=== PATIENT | female | born 1950 | race Caucasian/White ===

== ENCOUNTER 2020-11-25 11:33 | Emergency (ER) | payer OTHER, BC ==
--- OUTSIDE RECORDS SUMMARY | 2020-11-25 11:35 | XMS REPORT | Continuity of Care Document ---
:1950 Author Organization [facility] t Address [address] [place] [address] Care Team Providers Name Role Phone Asked, Given Primary Care Physician Unavailable Payers Payer Name Policy Type Policy Number Effective Date Expiration Date S ource Problems This patient has no known problems. Allergies, Adverse Reactions, Alerts Allergy Allergy Status Severity Reaction(s) Onset Inactive Treating Comm ents Source Name Type Date Date Clinician No Known DA Active [facility] 09[facility]29 [place] [facility] No Known DA Active U [facility] Drug 02-09 [place] [facility]: [facility] Family History Family Member Diagnosis Comments Start Date Stop Date Source Natural father Cancer [facility] Natural father Colon cancer [facility] Natural father Lung cancer [facility] Social [facility] Social Habit Start Date Stop Date Quantity Comments Source Alcohol intake 2016-01-22 2016-01-22 Current [facility]odist 00:00:00 00:00:00 non-drinker of alcohol (finding) Sex Ass[birth year] [facility] ethodist 00:00:00 00:00:00 Smoking Status Start Date Stop Date Source Never smoker [facility] Medications Ordered Filled Start Stop Current Ordering Indication Dosage Frequency Signature Comments Components Source Medication Medication Date Date Medication? Clinician (SIG) Name Name lisinopril- Yes 1{tbl} QD Take 1 Ho usqamar hydrochloro 5-26 tablet by Met charlie thiazide 15:22: mouth st (PRINZIDE,Z 28 daily. ESTORETIC) 20-12.5 mg per tablet pravastatin Yes 20mg QD Take 20 mg [place] (PRAVACHOL) 5-26 by mouth Meth christianne 20 MG 15:22: nightly. st tablet 28 coenzyme Yes 100mg QD Take 100 [place] Q10 100 mg 5-26 mg by Methodi capsule 15:22: mouth st 28 nightly. DOCOSAHEXAN Yes 1250mg QD Take 1,250 [place] OIC 5-26 mg by [facility] ACID/EPA 15:22: mouth st (FISH OIL 28 daily. ORAL) Procedures This patient has no known procedures. Plan of Care Planned Activity Planned Date Details Comments Source Future Scheduled 2021-01-21 INFLUENZA VACCINE Fatou n [facility] Test 00:00:00 [code = INFLUENZA VACCINE] Future Scheduled 2015 65+ PNEUMOCOCCAL [facility] Test 00:00:00 VACCINE (1 of 1 - PPSV23) [code = 65+ PNEUMOCOCCAL VACCINE (1 of 1 - PPSV23)] Future Scheduled 2000-01-27 BREAST CANCER [facility] thodist Test 00:00:00 SCREENING [code = BREAST CANCER SCREENING] Future Scheduled 2000-01-27 COLONOSCOPY SCREENING latasha Rast[facility]ari Test 00:00:00 [code = COLONOSCOPY SCREENING] Future Scheduled 2000-01-27 SHINGLES VACCINES (#1) H birgit Rast[facility]ari Test 00:00:00 [code = SHINGLES VACCINES (#1)] Future Scheduled 1962 COVID-19 VACCINE (1) Evi toshia Rast[facility]ari Test 00:00:00 [code = COVID-19 VACCINE (1)] Results Test Description Test Time Test Comments Results Result [facility] elliott Comments - MRI C-SPINE W/O 2020-03-23 Patient Name: CONT 14:49:00 ARTHUR GA Unit No: [id number] EXAMS: CPT CODE: [id number] MRI C-SPINE W/O CONT 12580 TECHNIQUE: Multiplanar, multisequence MRI examination performed of the cervical spine without intravenous contrast material. COMPARISON: None available. FINDINGS: Alignment: Grade 1 retrolisthesis C4-C5. Bone Lesion / Fracture: None present. Cervical Spinal Cord: No cord expansion or abnormal signal. Prevertebral / Paraspinal Soft Tissues: Unremarkable. C2/3: No significant disc bulge or herniation. Facet hypertrophy is noted bilaterally with fusion on the left. No significant foraminal or central canal stenosis. C3/4: Left asymmetric disc bulge is present as well as severe left, mild right facet hypertrophy. There is severe left, moderate right foraminal stenosis as well as moderate central canal stenosis. C4/5: Broad disc bulge osteophyte complex is present as well as right greater than left uncovertebral hypertrophy and left-sided facet degeneration. There is moderate central canal stenosis as well as mild left, moderate right foraminal stenosis. C5/6: Large left asymmetric disc bulge osteophyte complexes visualized as well as severe bilateral uncovertebral hypertrophy. There is severe canal stenosis as well as moderate to severe left, moderate right foraminal stenosis. C6/7: Broad disc bulge. Mild facet hypertrophy is present. There is mild to moderate central canal stenosis as well as mild right foraminal stenosis. C7/T1: Small disc bulge. Right greater than left facet hypertrophy. There is mild right foraminal stenosis as well as mild central canal stenosis. No significant left foraminal narrowing. IMPRESSION: Advanced multilevel cervical spondylosis, greatest at C5-C6, where there is severe central canal stenosis. at 1579 Reported and signed by: Demarcus Ching M.D. CC: Redd Joyner MD Technologist: Juhi Yousif RT(R) Transcribed D/ (3371) AsadRoly [facility] NAME: ARTHUR GA [address] PHYS: Redd Muñoz : 1950 AGE: 70 SEX: F [place], [place] [address] LOC: Y.MRI PHONE #: [phone] EXAM DATE: 03/23/2020 STATUS: REG CLI FAX #: [phone] RAD #: D/C DT PAGE 1 Signed Report Patient Name: ARTHUR GA Unit No: [id number] EXAMS: CPT CODE: [id number] MRI C-SPINE W/O CONT 57428 <Continued> Orig Print D/T: S: 03/23/2020 (1453) [facility] NAME: ARTHUR GA [address] [facility] PHYS: AFSHAN VinsoneyRedd Chavez M : 1950 AGE: 70 SEX: F [place], [place] [address] LOC: Y.MRI PHONE #: [phone] EXAM DATE: 03/23/2020 STATUS: REG CLI FAX #: [phone] RAD #: D/C DT PAGE 2 Signed Report HGB HCT 2019-02-26 06:37:00 Test Item Value Reference Range Interpretation Comme nts HEMOGLOBIN (test code = HGB) 13.2 g/dL 12-16 N HEMATOCRIT (test code = HCT) 39.0 % 37-47 N - USG NDL PLACEMENT (Bxg/Asp)2019-02-18 12:29:00 Patient Name: ARTHUR GA Unit No: [id number] EXAMS: CPT CODE: [id number] USG NDL PLACEMENT (Bxg/Asp) 82330 INDICATION: Right knee pain. PROCEDURE: Ultrasound guided cryoanalgesia (Iovera) of the right anterior femoral cutaneous nerve and the superior and inferiorbranches of the infrapatellar branch of the saphenous nerve. LAMINATION ASSEMBLER: Dr. Ching. MEDICATIONS: 1 % Lidocaine local anesthesia CONTRAST: None. COMPLICATION: None immediately evident. DESCRIPTION: After the procedure, including indication and potential complications had been discussed with the patient and questions answered, written informed consent was obtained. The patient was then taken to the ultrasound suite and placed on the table in supine position with their treatment leg fully extended. The skin of the right knee was evaluated sonographically. The skin over the anterior femor al cutaneous nerve and the superior and inferior branches of the infrapatellar branch of the saphenous nerve was marked. The skin was then prepped and draped sterilely. A time out was performed. After achieving 1% Lidocaine local anesthesia, the Iovera cryoanalgesia needle was inserted into the top of the treatment area, and the treatment was initiated. The duration of one treatment cycle was 60 seconds. After each treatment cycle, the needle was removed and repositioned in an overlapping position over the adjacent previous treatment location. A new treatment cycle was started. The treatment cycle was repeated a total of 4 times along the treatment area to treat the two branches of the infrapatellar saphenous nerve. The treatment cycle was repeated a total of 4 times a long a second treatment area to treat the anterior femoral cutaneous nerve. The patent's skin was cleaned and the wound was covered with a band-aid. The patient was instructed to stand and mobilize the knee joint. No immediate complication were observed. The patient tolerated the procedure well and was subsequently discharged in stable condition with instructions for follow up. Preprocedural pain level: 3/ 10 Postprocedural pain level: 0/ 10 IMPRESSION: Cryoanalgesia of the right anterior femoral cutaneous nerve and the superior andinferior branches of the infrapatellar branch of the saphenous nerve as above. [facility] NAME: ARTHUR GA [address] [place] [address] PHYS: [email or web address] - Marcel Bush : 1950 AGE: 69 SEX: F [place], [place] [address] LOC: NADYA PHONE #: [phone] EXAM DATE: 02/18/2019 STATUS: REG CLI FAX #: [phone] RAD #: D/C DT PAGE 1 Signed Report (CONTINUED) Patient Name: ARTHUR GA Unit No: [id number] EXAMS: CPT CODE: [id number] USG NDL PLACEMENT (Bxg/Asp) 62174 <Continued> at 1229 Reported and signed by: Demarcus Ching M.D. CC:Marcel Bush MD Technologist: VIBHA CHAUDHARY RDMS, RVT Transcribed D/ (3895) t.[email or web address].[email or web address] [facility] NAME: ARTHUR GA [address] [facility] PHYS: Marcel Lepe : 1950 AGE: 69 SEX: F [place], [place] [address] LOC: TeodoroRAD PHONE #: [phone] EXAM DATE: 02/18/2019 STATUS: REG CLI FAX #: [phone] RAD #: D/C DT PAGE 2 Signed Report Patient Name: ARTHUR GA Unit No: [id number] EXAMS: CPT CODE: [id number] USG NDL PLACEMENT (Bxg/Asp) 05291 <Continued> Orig Print D/T: S: 02/18/2019 (1232) [facility] NAME: ARTHUR GA [address] [facility] PHYS: Marcel Lepe : 1950 AGE: 69 SEX: F [place], [place] [address]HIHW NO: [id number] LOC: TeodoroRAD PHONE #: [phone] EXAM DATE: 02/18/2019 STATUS: REG CLI FAX #: [phone] RAD #: D/C DT PAGE 3 Signed ReportCOMPREHENSIVE METABOLIC [id number] 18:40:00 Test Item Value Reference Range Interpretation Comments SODIUM (test code = 141 mmol/L 136-145 N NA) POTASSIUM (test code = 3.9 mmol/L 3.5-5.1 N K) CHLORIDE (test code = 102.0 mmol/L 98-107 N CL) CARBON DIOXIDE (test 30.8 mmol/L 21-32 N code = CO2) GLUCOSE (test code = 100 mg/dL 70-110 N GLU) BLOOD UREA NITROGEN 21 mg/dL 7-18 H (test code = BUN) GLOMERULAR FILTRATION 73.2 >60 Unit o f measure: RATE (test code = GFR) mL/mi n/1.73 [id number] Range:Healthy Adults >90 mL/min/1.73 m2 For Chronic Kidney Disease: St age II Mild Decrease in GFR 60-90 St age III Moderate Decrease in GFR 30-59 Stage IV Severe Decre ase in GFR 15- 29 Stage V Kidney Failure <15 CREATININE (test code 0.78 mg/dL 0.55-1.30 N = CREAT) TOTAL PROTEIN (test 6.9 g/dL 6.4-8.2 N code = PROT) ALBUMIN (test code = 4.0 g/dL 3.4-5.0 N ALB) GLOBULIN (test code = 2.9 g/dL 2.2-4.2 N GLOB) ALBUMIN/GLOBULIN RATIO 1.4 0.7-2.0 N (test code = A/G) CALCIUM (test code = 9.2 mg/dL 8.2-10.1 N CA) BILIRUBIN TOTAL (test 0.29 mg/dL 0.2-1.00 N code = BILT) SGOT/AST (test code = 22.0 U/L 15-37 N AST) SGPT/ALT (test code = 25.0 U/L 12-78 N Please note new ALT) normal range. ALKALINE PHOSPHATASE 75 U/L 46-116 N TOTAL (test code = ALKP) URINALYSIS [id number] 18:20:00 Test Item Value Reference Range Interpretation Comments UA COLOR (test code = COLU) YELLOW YELLOW UA APPEARANCE (test code = SL CLOUDY CLEAR A APPU) UA GLUCOSE DIPSTICK (test code NEGATIVE NEGATIVE = DGLUU) UA BILIRUBIN DIPSTICK (test NEGATIVE NEGATIVE code = BILU) UA KETONE DIPSTICK (test code NEGATIVE mg/dL NEG = KETU) UA SPECIFIC GRAVITY (test code >= 1.030 1.003-1.035 = SGU) UA BLOOD DIPSTICK (test code = NEGATIVE NEGATIVE TURNER) UA PH DIPSTICK (test code = 6.0 >6.5 MAHIN) UA PROTEIN DIPSTICK (test code NEGATIVE mg/dL NEG = PROU) UA UROBILINIOGEN DIPSTICK 0.2 mg/dL NORM (test code = URO) UA NITRITE DIPSTICK (test code NEGATIVE NEG = MARINA) UA LEUKOCYTE ESTERASE DIPSTICK 1+ NEGATIVE A (test code = LEUU) UA WBC (test code = WBCU) 5-10 /HPF 0-2 UA RBC (test code = RBCU) 0-2 /HPF 0-2 UA EPITHELIAL CELLS (test code MOD /HPF 0-2 = EPIU) UA BACTERIA (test code = BACU) 3+ /HPF NONE A PROTHROMBIN [id number] 17:40:00 Test Item Value Reference Range Interpretation Comments PROTHROMBIN TIME 10.9 secs 10.1-12.5 N PATIENT (test code = PTP) INTERNATIONAL NORMAL 0.96 <2.0 RECOMME NDED THERAPEUTIC RATIO (test code = RANGE FOR ORAL INR) ANTICOAGULANTTR EATMENT: CONDI TION INRProphylaxis of venous thrombos is in 2.0 - 3.0 high-risk medic al or surgical patientsTreatme nt of venous thrombos is 2.0 - 3.0Prevention o f embolism 2.0 - 3.0Prevention o f recurrent embol ism, or 3.0 - 4. 5 patients with mechanical pros thetic intravascular v henson IS PATIENT ON ANTICOAGULANTS ? YLIST ANTICOAGULANT/ANTI PLT MEDICATION : AspirinHas Lab been notified if Patient is on Heparin Drip? NOTHROMBOPLASTIN TIME [id number] 17:40:00 Test Item Value Reference Range Interpretation Comments PTT ACTIVATED (test code = APTT) 31.9 secs 24.9-37.0 N IS PATIENT ON ANTICOAGULANTS ? YLIST ANTICOAGULANT/ANTI PLT MEDICATION : AspirinHas Lab been notified if Patient is on Heparin Drip? NOCBC W/AUTO DIFF 2019-02-10 17:37:00 Test Item Value Reference Range Interpretation Comments WHITE BLOOD CELL (test code = WBC) 6.0 K/mm3 5.8-11.0 N RED BLOOD CELL (test code = RBC) 5.36 M/mm3 4.2-5.4 N HEMOGLOBIN (test code = HGB) 15.5 g/dL 12-16 N HEMATOCRIT (test code = HCT) 46.3 % 37-47 N MEAN CELL VOLUME (test code = MCV) 86 fL 80-98 N MEAN CELL HGB (test code = MCH) 28.9 pg 27-34 N MEAN CELL HGB CONCENTRATION (test 33.5 g/dL 30.8-34.1 N code = MCHC) RED CELL DISTRIBUTION WIDTH (test 14.1 % 11-16 N code = RDW) PLT (test code = PLT) 220 K/mm3 130-400 N MEAN PLATELET VOLUME (test code = 11.4 fL 8.9-12.1 N MPV) NEUTROPHIL % (test code = NT%) 67.5 % 45-70 N LYMPHOCYTE % (test code = LY%) 21.0 % 20-40 N MONOCYTE % (test code = MO%) 8.0 % 3-10 N EOSINOPHIL % (test code = EO%) 2.0 % 1-5 N BASOPHIL % (test code = BA%) 1.2 % 0.0-1.1 H NEUTROPHIL # (test code = NT#) 4.05 K/mm3 2.00-7.50 N LYMPHOCYTE # (test code = LY#) 1.26 K/mm3 1.50-4.00 L MONOCYTE # (test code = MO#) 0.48 K/mm3 0.2-0.8 N EOSINOPHIL # (test code = EO#) 0.12 K/mm3 0.04-0.4 N BASOPHIL # (test code = BA#) 0.07 K/mm3 0.02-0.10 N MANUAL DIFF REQUIRED (test code = NO MANUAL DIFF MDIFF) NUCLEATED RED BLOOD CELL (test 0 % 0-0 N code = NRBC) HGB [id number] 05:57:00 Test Item Value Reference Range Interpretation Comments HEMOGLOBIN (test code = HGB) 13.4 g/dL 12-16 N HEMATOCRIT (test code = HCT) 39.6 % 37-47 N COMPREHENSIVE METABOLIC [id number] 11:58:00 Test Item Value Reference Range Interpretation Comments SODIUM (test code = 138 mmol/L 136-145 N NA) POTASSIUM (test code = 4.3 mmol/L 3.5-5.1 N K) CHLORIDE (test code = 100.0 mmol/L 98-107 N CL) CARBON DIOXIDE (test 30.7 mmol/L 21-32 N code = CO2) GLUCOSE (test code = 93 mg/dL 70-110 N GLU) BLOOD UREA NITROGEN 16 mg/dL 7-18 N (test code = BUN) GLOMERULAR FILTRATION 63.9 >60 Unit o f measure: RATE (test code = GFR) mL/mi n/1.73 [id number] Range:Healthy Adults >90 mL/min/1.73 m2 For Chronic Kidney Disease: St age II Mild Decrease in GFR 60-90 St age III Moderate Decrease in GFR 30-59 Stage IV Severe Decre ase in GFR 15- 29 Stage V Kidney Failure <15 CREATININE (test code 0.88 mg/dL 0.55-1.30 N = CREAT) TOTAL PROTEIN (test 6.7 g/dL 6.4-8.2 N code = PROT) ALBUMIN (test code = 3.8 g/dL 3.4-5.0 N ALB) GLOBULIN (test code = 2.9 g/dL 2.2-4.2 N GLOB) ALBUMIN/GLOBULIN RATIO 1.3 0.7-2.0 N (test code = A/G) CALCIUM (test code = 8.9 mg/dL 8.2-10.1 N CA) BILIRUBIN TOTAL (test 0.57 mg/dL 0.2-1.00 N code = BILT) SGOT/AST (test code = 22.0 U/L 15-37 N AST) SGPT/ALT (test code = 28.0 U/L 12-78 N Please note new ALT) normal range. ALKALINE PHOSPHATASE 85 U/L 46-116 N TOTAL (test code = ALKP) - USG NDL PLACEMENT (Bxg/Asp)2018-09-29 11:53:00 Patient Name: ARTHUR GA Unit No: [id number] EXAMS: CPT CODE: [id number] USG NDL PLACEMENT (Bxg/Asp) 40738 INDICATION: Left knee pain. PROCEDURE: Ultrasound guided cryoanalgesia (Iovera) of the left anterior femoral cutaneous nerve and the superior and inferior branches of the infrapatellar branch of the saphenous nerve. LAMINATION ASSEMBLER: Dr. Corona. MEDICATIONS: 1 % Lidocaine local anesthesia CONTRAST: None. COMPLICATION: None immediately evident. DESCRIPTION: After the procedure, including indication and potential complications had been discussed with the patient and questions answered, written informed consent was obtained. The patient was then taken to the ultrasound suite and placed on the table in supine position with their treatment leg fully extended. The skin of the left knee was evaluated sonographically. The skin over the anterior femoral cutaneous nerve and the superior and inferior branches of the infrapatellar branch of the saphenous nerve was marked. The skin was then prepped and draped sterilely. A time out was performed. After achieving 1% Lidocaine local anesthesia, the Iovera cryoanalgesia needle was inserted into the top of the treatment area, and the treatment was initiated. The duration of one treatment cycle was 60 seconds. After each treatment cycle, the needle was removed and repositioned in an overlapping position over the adjacent previous treatment location. A new treatment cycle was started. The treatment cycle was repeated a total of 4 times along the treatment area to treat the two branches of the infrapatellar saphenous nerve. The treatment cycle was repeated a total of 4 times a long a second treatment area to treat the anterior femoral cutaneous nerve. The patent's skin was cleaned and the wound was covered w ith a band-aid. The patient was instructed to stand and mobilize the knee joint. No immediate complication were observed. The patient tolerated the procedure well and was subsequently discharged in stable condition with instructions for follow up. Preprocedural pain level: 10 Postprocedural pain level: IMPRESSION: Cryoanalgesia of the left anterior femoral cutaneous nerve and the superior and inferior branches of the infrapatellar branch of the saphenous nerve as above. [facility] NAME: ARTHUR GA [address] [place] [address] PHYS: KARLA Mccray Marcel Bush Ludwig : 1950 AGE: 68 SEX: F [place] [address] LOC: Y.RAD PHONE #: [phone] EXAM DATE: 09/29/2018 STATUS: REG CLI FAX #: [phone] RAD #: D/C DT PAGE 1 Signed Report (CONTINUED) Patient Name: ARTHUR GA Unit No: [id number] EXAMS: CPT CODE: [id number] USG NDL PLACEMENT (Bxg/Asp) 21201 <Continued> at 1153 Reported and signed by: Chucky Corona MD CC: Andry Bush MD Technologist: VIBHA CHAUDHARY RDMS, RVT Transcribed D/ (1153) t.HANHR.JCL [facility] NAME: ARTHUR GA [address] [place] [address] PHYS: KAT MiguelluisMarcel Ludwig : 1950 AGE: 68 SEX: F [place] [address] LOC: Y.RAD PHONE #: [phone] EXAM DATE: 09/29/2018 STATUS: REG CLI FAX #: [phone] RAD #: D/C DT PAGE 2 Signed Report Patient Name: ARTHUR GA Unit No: [id number] EXAMS: CPT CODE: [id number] USG NDL PLACEMENT (Bxg/Asp) 42660 <Continued> Orig Print D/T: S: 09/29/2018 (1156) [facility] NAME: ARTHUR GA [address] [facility] PHYS: MATVA.[email or web address] - Marcel Bush : 1950 AGE: 68 SEX: F [place], [place] [address] LOC: YSloaneRAD PHONE #: [phone] EXAM DATE: 09/29/2018 STATUS: REG CLI FAX #: [phone] RAD #: D/C DT PAGE 3 Signed ReportPROTHROMBIN [id number] 11:10:00 Test Item Value Reference Range Interpretation Comments PROTHROMBIN TIME 11.4 secs 10.1-12.5 N PATIENT (test code = PTP) INTERNATIONAL NORMAL 1.01 <2.0 RECOMME NDED THERAPEUTIC RATIO (test code = RANGE FOR ORAL INR) ANTICOAGULANTTR EATMENT: CONDI TION INRProphylaxis of venous thrombos is in 2.0 - 3.0 high-risk medic al or surgical patientsTreatme nt of venous thrombos is 2.0 - 3.0Prevention o f embolism 2.0 - 3.0Prevention o f recurrent embol ism, or 3.0 - 4. 5 patients with mechanical pros thetic intravascular v henson IS PATIENT ON ANTICOAGULANTS ? NHas Lab been notified if Patient is on Heparin Drip? NOIf Yes, orderCBC, OCCULT BLOOD, PT every other day NTHROMBOPLASTIN TIME [id number] 11:10:00 Test Item Value Reference Range Interpretation Comments PTT ACTIVATED (test code = APTT) 31.6 secs 24.9-37.0 N IS PATIENT ON ANTICOAGULANTS ? NHas Lab been notified if Patient is on Heparin Drip? NOIf Yes, orderCBC, OCCULT BLOOD, PT every other day NCBC W/AUTO DIFF 2018-09-29 10:52:00 Test Item Value Reference Range Interpretation Comments WHITE BLOOD CELL (test code = WBC) 7.4 K/mm3 5.8-11.0 N RED BLOOD CELL (test code = RBC) 5.21 M/mm3 4.2-5.4 N HEMOGLOBIN (test code = HGB) 15.3 g/dL 12-16 N HEMATOCRIT (test code = HCT) 45.4 % 37-47 N MEAN CELL VOLUME (test code = MCV) 87 fL 80-98 N MEAN CELL HGB (test code = MCH) 29.4 pg 27-34 N MEAN CELL HGB CONCENTRATION (test 33.7 g/dL 30.8-34.1 N code = MCHC) RED CELL DISTRIBUTION WIDTH (test 14.1 % 11-16 N code = RDW) PLT (test code = PLT) 254 K/mm3 130-400 N MEAN PLATELET VOLUME (test code = 11.1 fL 8.9-12.1 N MPV) NEUTROPHIL % (test code = NT%) 64.0 % 45-70 N LYMPHOCYTE % (test code = LY%) 24.9 % 20-40 N MONOCYTE % (test code = MO%) 8.1 % 3-10 N EOSINOPHIL % (test code = EO%) 1.2 % 1-5 N BASOPHIL % (test code = BA%) 1.4 % 0.0-1.1 H NEUTROPHIL # (test code = NT#) 4.73 K/mm3 2.00-7.50 N LYMPHOCYTE # (test code = LY#) 1.84 K/mm3 1.50-4.00 N MONOCYTE # (test code = MO#) 0.60 K/mm3 0.2-0.8 N EOSINOPHIL # (test code = EO#) 0.09 K/mm3 0.04-0.4 N BASOPHIL # (test code = BA#) 0.10 K/mm3 0.02-0.10 N MANUAL DIFF REQUIRED (test code = NO MANUAL DIFF MDIFF) PLATELET MORPHOLOGY REQUIRED (test NORMAL code = PLTMR)
--- NOTE | 2020-11-25 12:34 | RAD REPORT ---
EXAM DESCRIPTION: US - Extremity Venous Uni Ltd - 11/25/2020 12:24 pm CLINICAL HISTORY: pain/bruising Leg swelling and edema. COMPARISON: No comparisons FINDINGS: Left lower extremity venous system was interrogated with Doppler technique. Normal flow, c ompressibility and augmentation was noted. There is no DVT present. IMPRESSION: No evidence of left lower extremity deep venous thrombosis.
[2020-11-25 13:47] LABS: Absolute Lymphocytes (CBC) 0.8 K/uL (0.7-4.9); Basophils % 1.1 % (0-1.3); Hematocrit 41.1 % (36.0-45.0); Lymphocytes % 16.2 % (15.3-44.8); MPV 9.2 fL (7.6-11.3); RBC Red Blood Cell Count 4.67 M/uL (3.86-4.86)
[2020-11-25 13:48] LABS: Protime INR 0.97
[2020-11-25 13:59] LABS: Albumin 3.7 g/dL (3.4-5.0); Bilirubin Total 0.5 mg/dL (0.2-1.0); Potassium 4.1 mmol/L (3.5-5.1); Protein, Total 7.1 g/dL (6.4-8.2)
--- NOTE | 2020-11-25 14:07 | ER ---
Nurse's Notes [facility] [place] Name: Philomena Barrett Age: 70 yrs Sex: Female : 1950 Arrival Date: 11/25/2020 Time: 11:37 Bed 24 Private MD: Diagnosis: Nontraumatic hematoma of soft tissue Presentation: 11/25 11:48 Chief complaint: Patient states: "I have a knot on the back of my left leg and a bruise aa5 so I want to make sure it's not a blood clot". Coronavirus screen: At this time, the client does not indicate any symptoms associated with coronavirus-19. Ebola Screen: Patient negative for fever greater than or equal to 101.5 degrees Fahrenheit, and additional compatible Ebola Virus Disease symptoms. Initial Sepsis Screen: Does the patient meet any 2 criteria? No. Patient's initial sepsis screen is negative. Does the patient have a suspected source of infection? No. Patient's initial sepsis screen is negative. Risk Assessment: Do you want to hurt yourself or someone else? Patient reports no desire to harm self or others. Onset of symptoms was November 2020. 11:48 Acuity: GABBY 4 aa5 11:48 Method Of Arrival: Ambulatory aa5 Triage Assessment: 13:08 General: Behavior is calm. zb Historical: - Allergies: 11:51 No Known Allergies; aa5 - Home Meds: 11:51 lisinopril-hydrochlorothiazide 20-12.5 mg oral tab once daily [Active]; pravastatin 20 aa5 mg oral tab 1 tab once daily [Active]; aspirin 81 mg Oral chew 1 tab once daily [Active]; - PMHx: 11:51 Hypertension; Hyperlipidemia; aa5 - Immunization history:: Adult Immunizations unknown. - Social history:: Smoking status: Patient denies any tobacco usage or history of. Screenin:06 Abuse screen: Denies threats or abuse. Denies injuries from another. Nutritional zb screening: No deficits noted. Tuberculosis screening: No symptoms or risk factors identified. Fall Risk None identified. Assessment: 13:06 General:. General: Appears in no apparent distress. comfortable. Pain: Complains of zb pain in left calf Pain does not radiate. Pain currently is 2 out of 10 on a pain scale. Quality of pain is described as pressure, Pain began suddenly, Alleviated by rest. Neuro: Level of Consciousness is awake, alert, Oriented to person, place, time, situation. Cardiovascular: Patient's skin is warm and dry. Respiratory: Airway is patent Respiratory effort is even, unlabored, Respiratory pattern is regular, symmetrical. GI: No deficits noted. : No deficits noted. Derm: Skin is intact, is healthy with good turgor, Skin is dry, Skin is normal, Bruising that is dark purple, on left calf. Musculoskeletal: Range of motion: intact in all extremities. 13:08 Reassessment: ECP at bedside discussing care. zb Vital Signs: 11:48 BP 137 / 66; Pulse 71; Resp 18 S; Temp 97.0(TE); Pulse Ox 97% on R/A; Weight 106.14 kg aa5 (R); Height 5 ft. 5 in. (165.10 cm) (R); 14:20 BP 120 / 71; Pulse 80; Resp 16; Pulse Ox 100% on R/A; zb 11:48 Body Mass Index 38.94 (106.14 kg, 165.10 cm) aa5 ED Course: 11:37 Patient arrived in ED. rg4 11:48 Arm band placed on. aa5 11:50 Triage completed. aa5 12:24 US Extremity Venous Unilateral Ltd In Process Unspecified. EDMS 12:26 Tavo Perez NP is PHCP. pm1 12:26 Jai Allan MD is Attending Physician. pm1 12:47 Simran Yousif RN is Primary Nurse. zb 13:08 Patient has correct armband on for positive identification. Call light in reach. Side zb rails up X 1. Side rails up X2. Pulse ox on. NIBP on. 14:32 No provider procedures requiring assistance completed. Patient did not have IV access zb during this emergency room visit. Administered Medications: No medications were administered Outcome: 14:07 Discharge ordered by . pm1 14:32 Discharged to home ambulatory. zb 14:32 Condition: stable 14:32 Discharge instructions given to patient, Instructed on discharge instructions, follow up and referral plans. Demonstrated understanding of instructions, follow-up care. 14:32 Patient left the ED. zb Signatures: Dispatcher [employer] [facility] Kaya Ferris RN RN aa5 Tavo Perez NP CREAM TESTER pm1 Heidy Aaron rg4 Simran Yousif, RN RN zb
--- NOTE | 2020-11-25 14:07 | EDPHYS ---
Physician Documentation [facility] Name: Philomena Barrett Age: 70 yrs Sex: Female : 1950 Arrival Date: 11/25/2020 Time: 11:37 Bed 24 Private MD: ED Physician Jai Allan HPI: 11/25 12:42 This 70 yrs old Female presents to ER via Ambulatory with complaints of Knot pm1 on Leg. 12:42 The patient presents with bruise. pm1 12:42 The complaints affect the left calf. Context: The problem was sustained at an unknown pm1 site, resulted from an unknown cause, the patient can fully bear weight, the patient is able to ambulate. Onset: The symptoms/episode began/occurred 3 day(s) ago. Modifying factors: the symptoms are aggravated by nothing. Associated signs and symptoms: Pertinent negatives calf tenderness, fever, numbness, swelling, tingling, Pain. Treatment prior to arrival includes: no previous treatment. Severity of symptoms: in the emergency department the symptoms have improved. The patient has not experienced similar symptoms in the past. The patient has not recently seen a physician. Historical: - Allergies: 11:51 No Known Allergies; aa5 - Home Meds: 11:51 lisinopril-hydrochlorothiazide 20-12.5 mg oral tab once daily [Active]; pravastatin 20 aa5 mg oral tab 1 tab once daily [Active]; aspirin 81 mg Oral chew 1 tab once daily [Active]; - PMHx: 11:51 Hypertension; Hyperlipidemia; aa5 - Immunization history:: Adult Immunizations unknown. - Social history:: Smoking status: Patient denies any tobacco usage or history of. ROS: 12:42 Constitutional: Negative for fever, chills, and weight loss. pm1 12:42 Cardiovascular: Negative for chest pain, palpitations, and edema, Respiratory: Negative for shortness of breath, cough, wheezing, and pleuritic chest pain, Abdomen/GI: Negative for abdominal pain, nausea, vomiting, diarrhea, and constipation, Back: Negative for injury and pain, MS/Extremity: Negative for injury and deformity. 12:42 Eyes: Negative for injury, pain, redness, and discharge, ENT: Negative for injury, pain, and discharge, Neuro: Negative for headache, weakness, numbness, tingling, and seizure. 12:42 Skin: Positive for ecchymosis, of the left calf. Exam: 12:42 Constitutional: This is a well developed, well nourished patient who is awake, alert, pm1 and in no acute distress. Head/Face: Normocephalic, atraumatic. 12:42 Back: No spinal tenderness. No costovertebral tenderness. Full range of motion. 12:42 MS/ Extremity: Pulses equal, no cyanosis. Neurovascular intact. Full, normal range of motion. 12:42 Cardiovascular: Rate: normal, Rhythm: regular, Pulses: no pulse deficits are appreciated, Heart sounds: normal, normal S1and S2, Edema: is not appreciated. 12:42 Respiratory: Exam negative for acute changes, respiratory distress, shortness of breath, Breath sounds: are clear throughout. 12:42 Skin: Appearance: normal except for affected area, ecchymosis, noted on the, left calf. 12:42 Neuro: Exam negative for acute changes, Orientation: is normal, Mentation: is normal, Motor: is normal, moves all fours. Vital Signs: 11:48 BP 137 / 66; Pulse 71; Resp 18 S; Temp 97.0(TE); Pulse Ox 97% on R/A; Weight 106.14 kg aa5 (R); Height 5 ft. 5 in. (165.10 cm) (R); 14:20 BP 120 / 71; Pulse 80; Resp 16; Pulse Ox 100% on R/A; zb 11:48 Body Mass Index 38.94 (106.14 kg, 165.10 cm) aa5 MDM: 12:26 Patient medically screened. pm1 14:05 Data reviewed: vital signs. Data interpreted: Pulse oximetry: on room air is 97 %. pm1 Interpretation: normal. Counseling: I had a detailed discussion with the patient and/or guardian regarding: the historical points, exam findings, and any diagnostic results supporting the discharge/admit diagnosis, lab results, radiology results, the need for outpatient follow up, to return to the emergency department if symptoms worsen or persist or if there are any questions or concerns that arise at home. 11/25 13:10 Order name: CBC with Diff; Complete Time: 14:05 pm1 11/25 13:10 Order name: CMP; Complete Time: 14:05 pm1 11/25 11:54 Order name: US Extremity Venous Unilateral Ltd; Complete Time: 12:42 ss 11/25 13:10 Order name: [id number]-[id number]; Complete Time: 14:05 pm1 Administered Medications: No medications were administered Disposition: 11/25/20 14:07 Discharged to Home. Impression: Nontraumatic hematoma of soft tissue. - Condition is Stable. - Discharge Instructions: Hematoma. - Medication Reconciliation Form, Thank You Letter, Antibiotic Education, Prescription Opioid Use form. - Follow up: Emergency Department; When: As needed; Reason: Worsening of condition. Follow up: Private Physician; When: 2 - 3 days; Reason: Recheck today's complaints, Continuance of care, Re-evaluation by your physician. - Problem is new. - Symptoms have improved. Addendum: 11/28/2020 07:40 Co-signature as Attending Physician, Jai Allan MD I agree with the assessment and c ferrera plan of care. Signatures: Dispatcher [employer] EDJai Salas MD MD cha Calderon, Audri, RN RN aa5 Tavo Perez NP HOSPICE ADMINISTRATOR pm1 Simran Yousif RN RN zb Corrections: (The following items were deleted from the chart) 11/25 14:08 14:07 11/25/2020 14:07 Discharged to Home. Impression: Contusion of left lower leg. pm1 Condition is Stable. Forms are Medication Reconciliation Form, Thank You Letter, Antibiotic Education, Prescription Opioid Use. Follow up: Emergency Department; When: As needed; Reason: Worsening of condition. Follow up: Private Physician; When: 2 - 3 days; Reason: Recheck today's complaints, Continuance of care, Re-evaluation by your physician. Problem is new. Symptoms have improved. pm1 14:32 14:08 11/25/2020 14:07 Discharged to Home. Impression: Nontraumatic hematoma of soft zb tissue. Condition is Stable. Discharge Instructions: Hematoma. Forms are Medication Reconciliation Form, Thank You Letter, Antibiotic Education, Prescription Opioid Use. Follow up: Emergency Department; When: As needed; Reason: Worsening of condition. Follow up: Private Physician; When: 2 - 3 days; Reason: Recheck today's complaints, Continuance of care, Re-evaluation by your physician. Problem is new. Symptoms have improved. pm1
[2020-11-25 14:41] VITALS: TEMP 97
[2020-11-25 14:42] VITALS: BP 120/71; O2SAT 100
== END 2020-11-25 14:32 | disposition home or self-care (01) ==
LOC: ER 11:33
DX: M79.81 Nontraumatic hematoma of soft tissue (principal); I10 Essential (primary) hypertension; E78.5 Hyperlipidemia, unspecified; Z79.82 Long term (current) use of aspirin
CPT/HCPCS: 36415; 80053; 85025; 85610; 93971; 99283